=== PATIENT | male | born 2000 | race Caucasian/White ===

== ENCOUNTER 2022-07-04 19:34 | Emergency (ER) | payer BC, SELFPAY ==
[2022-07-04 19:57] VITALS: BP 144/88; PULSE 90; RESP 18; TEMP 36.6; O2SAT 98
--- NOTE | 2022-07-04 20:37 | ED.NURSE ---
DEEDEE ARNETT Paged at 2005
[2022-07-04] MEDS: 0.9 % SODIUM CHLORIDE 1000 ml 1,000 ML IV (21:03)
[2022-07-04 21:06] LABS: HCO3 VBG 29 mmol/L (21-28); Lactate* 1.4 mmol/L (0.5-1.9); PCO2 VBG 42 mmHG (40-50); PO2 VBG 39.1 mmHG (25-47); pH VBG 7.442 (7.32-7.43)
[2022-07-04 21:08] LABS: Basophils Percent Auto 0.1 % (0.0-3.0); Eosinophils Percent Auto 0.1 % (0.0-7.0); Hematocrit 43.7 % (37.0-53.0); Hemoglobin* 15.2 gm/dL (13.5-17.5); Immature Granulocytes Pct Auto 0.7 %; Lymphocytes Percent Auto 12.4 % (20-44); Mean Corpuscular HGB Conc 35 gm/dL (32-36); Mean Corpuscular Hemoglobin 30 pg (26-34); Mean Corpuscular Volume 86 fL (80-100); Monocytes Percent Auto 9.6 % (0.0-11.0); Neutrophils Percent Auto 77.1 % (42.0-72.0); Platelet Count* 216 K/uL (140-440); RDW Coefficient of Variation % 12.9 % (11.5-15.5); Red Blood Count 5.08 m/uL (4.30-5.90); White Blood Count* 14.03 K/uL (4.50-11.00)
[2022-07-04 21:11] LABS: Slide Review Reflex No
--- NOTE | 2022-07-04 21:23 | ED.NURSE ---
Patient consenting to EMILEE exam, states its probably for the best. Gas Station Operator gui HEBERT RN
[2022-07-04 21:34] LABS: Albumin* 4.4 g/dL (3.3-5.0); Chloride* 104 mmol/L (96-114)
[2022-07-04 21:35] LABS: Potassium* 3.5 mmol/L (3.6-5.1); Sodium* 139 mmol/L (135-149)
[2022-07-04 21:37] LABS: Alkaline Phosphatase* 56 U/L (40-150); Aspartate Amino Transferase* 110 U/L (12-35); Bilirubin Direct* 0.3 mg/dL (0.0-0.5); Bilirubin Total* 1.3 mg/dL (0.1-1.5); Carbon Dioxide* 28 mmol/L (20-32); Creatinine* 0.6 mg/dL (0.5-1.5); Estimated Glomerular Filt Rate 139 ml/min; Total Protein* 7.5 g/dL (6.0-8.3)
[2022-07-04 21:38] LABS: Alanine Aminotransferase* 50 U/L (4-50); Blood Urea Nitrogen* 33 mg/dL (5-24); Calcium* 8.9 mg/dL (8.4-10.6); Glucose* 128 mg/dL (60-115)
[2022-07-04 21:40] LABS: C Reactive Protein* 8.6 mg/dL (0.5-1.0)
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
--- NOTE | 2022-07-04 22:18 | ED.NURSE ---
Patient ambulated to the bathroom, patient steady on his feet.
[2022-07-04 22:26] LABS: Appearance Urine Clear (Clear); Bilirubin Urine 1+ (Negative); Blood Urine Trace-intact (Negative); Color Urine Yellow (Yellow); Glucose Urine Trace (Negative); Ketones Urine 2+ (Negative); Leukocyte Esterase Urine Negative (Negative); Nitrite Urine Negative (Negative); Protein Urine 2+ (Negative); Specific Gravity Urine 1.025 (1.000-1.030)
[2022-07-04 22:27] LABS: Amphetamine Screen Urine Negative (Negative); Barbiturate Screen Urine Negative (Negative); Benzodiazepines Screen Urine Negative (Negative); Cannabinoid Screen Urine Negative (Negative); Cocaine Screen Urine Negative (Negative); Methadone Screen Urine Negative (Negative); Methamphetamines Screen Urine Negative (Negative); Opiate Screen Urine Negative (Negative); Oxycodone Screen Urine Negative (Negative); Phencyclidine Screen Urine Negative (Negative); Tricyclic Antidepressant Urine Negative (Negative)
[2022-07-04 22:30] LABS: RBC Urine 0-2 (0-2); Squamous Epithelial Cell Urine Few (None-Few)
[2022-07-04 22:31] LABS: Fine Granular Casts Urine Few
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
[2022-07-04 23:51] LABS: Chlamydia DNA Amplified* NOT DETECTED (No Detected); GC DNA Amplified* NOT DETECTED (No Detected)
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
== END 2022-07-04 22:43 | disposition home or self-care (01) ==
PROVIDERS: Emergency Provider Family Medicine
DX: E86.0 Dehydration (principal); X39.8XXA Other exposure to forces of nature, initial encounter
CPT/HCPCS: 0353U; 36415; 80048; 80076; 80306; 81001; 82803; 83605; 85025; 86140; 87491; 87591; 96361; 99283; 99284; J7030